=== PATIENT | male | born 1950 | race Caucasian/White ===

== ENCOUNTER 2021-05-12 13:44 | Emergency (ER) | payer MEDICARE, BC ==
[2021-05-12] MEDS ORDERED: Ketorolac 60 MG/2 ML SDV IM ONE (14:29)
--- NOTE | 2021-05-12 14:30 | EDM.PDOC ---
ED HPI GENERAL MEDICAL PROBLEM - General Chief Complaint: Lower Extremity Injury/Pain Stated Complaint: LFT FOOT PAIN SWOLLEN Time Seen by Provider: 05/12/21 14:17 Source of Information: Reports: Patient History Limitations: Reports: No Limitations - History of Present Illness INITIAL COMMENTS - FREE TEXT/NARRATIVE: HISTORY AND PHYSICAL: History of present illness: The patient is a 70-year-old male who presents to the emergency room with complaints of left lateral foot pain that started yesterday while he was hiking uphill pain in [place]. The patient states that while he was walking uphill pain he can and he heard a pop and he felt a pop. After that he was unable to the ball of his foot. He had to walk up the backwards due to the pain. The patient has a history of left foot pain which started around April 04 when he was hiking. That pain was more like a plantar fasciitis pain where he had more pain in the morning after waking up. Is been having pain on and off in his foot since then. He has taken Motrin which has helped with the pain somewhat. He prefers to hiking boot as it gives him more support. Review of systems: As per history of present illness and below otherwise all systems reviewed and negative. Past medical history: As per history of present illness and as reviewed below otherwise noncontributory. Surgical history: As per history of present illness and as reviewed below otherwise noncontributory. Social history: See social history for further information Family history: As per history of present illness and as reviewed below otherwise noncontributory. Physical exam: General: Well developed and well nourished. Alert and orientated x 3. Nontoxic in appearance and in no acute distress. Vital signs are stable and have been rev iewed by me. Nursing notes were reviewed. HEENT: Atraumatic, normocephalic, pupils equal and reactive bilaterally,trachea midline. No drooling or trismus noted. No meningeal signs. No hot potato voice noted. Lungs: Normal work of breathing, no accessory muscles used. Heart: S1S2, regular rate and rhythm without overt murmur, gallops, or rubs. No JVD. No peripheral edema Skin: Intact, warm, dry. No lesions or rashes noted. Hematologic: No petechiae or purpra. Mucosa appropriate color and normal nail bed color and refill. Extremities: Left lateral dorsum of foot with mild edema. No discoloration. No obvious deformity. Tender to touch on the lateral right side. Moves all extremities per self without difficulty or deficits, negative for cords or calf pain. Neurovascular unremarkable. Neuro: Awake, alert, oriented. Cranial nerves II through XII unremarkable. Cerebellum unremarkable. Motor and sensory unremarkable throughout. Exam nonfocal. Psychiatric: Mood and affect are appropriate. Normal thought process. Answering questions appropriately. Notes: *This patient was seen and evaluated during the 2019 SARS-CoV-2 novel coronavirus pandemic period. Community viral transmission is ongoing at time of this encounter and the emergency department is operating under pandemic response procedures. As stated above the patient is a 70-year-old male who presents to the ER after yesterday hearing a pop in his foot and having pain. He states that he previously had been possibly diagnosed with a stress fracture but it was not seen on x-ray findings. For today's purposes I will order a left foot x-ray, treat his pain with Toradol 60 mg IM. FINDINGS: Moderate lobulated chronic appearing configuration of the medial left navicular bone versus an adjacent accessory navicular bone. Small well corticated ossific density in the left lateral hindfoot chronic. Mild degenerative arthritis left foot. No acute fracture or dislocation in left foot. Left foot otherwise negative. As the patient is traveling across country and is unable to follow-up readily with a autoglazier I will put him in a walking boot to facilitate walking and comfort. Patient can take Motrin 400 to 600 mg every 6-8 hours as needed for pain. The patient is agreeable with this plan. I have talked with the patient about today's findings, in addition to providing specific details for plan of care. Reassessment at the time of disposition demonstrates that the patient is in no acute distress. The patient is stable for discharge, counseling was provided and we discussed in great detail signs and symptoms that would prompt them to return to the Emergency Department. Medication, follow up and supportive care measures were reviewed and discussed. Voices understanding and is agreeable to plan of care. Denies any further questions or concerns at this time. Diagnostics: Left foot x-ray Therapeutics: Toradol 60 mg IM. Patient to left walking boot wear for stabilization and comfort until follow-up with podiatry. Impression: Left foot pain Plan: 1. You were evaluated today on an emergent basis. Your left lateral foot pain was evaluated with an x-ray and exam. The x-ray does not show a stress f racture, however, that would not be uncommon. I am going to order a walking boot for stabilization and comfort. We will need to follow-up with a autoglazier. As you are on the road going [place] country I will leave the follow-up to you. You can use your NSAID you have at home for pain and discomfort. 2. You can alternate Tylenol and ibuprofen as needed for pain and fever management. 3. We encourage you to follow up with your primary care provider and/or recommended specialist in the next few days for re-evaluation and further care/management. 4. If your symptoms should worsen, new symptoms develop or any of the signs and symptoms we discussed should arise please return to the emergency room or call 911 (if needed). Definitive disposition and diagnosis as appropriate pending reevaluation and review of above. left foot Pain Score (Numeric/FACES): 3 - Related Data Allergies Allergy/AdvReac Type Severity Reaction Status Date / Time No Known Allergies Allergy Verified 05/12/21 14:06 Home Meds: Home Meds Esomeprazole [NexIUM] 20 mg PO DAILY 05/12/21 [History] tadalafiL [Tadalafil] 5 mg PO DAILY 05/12/21 [History] Past Medical History - Infectious Disease History Infectious Disease History: Reports: Chicken Pox, Measles, Mumps - Past Surgical History HEENT Surgical History: Reports: Naso-Sinus Surgery GI Surgical History: Reports: Hernia Repair/Other Musculoskeletal Surgical History: Reports: Knee Replacement Other Musculoskeletal Surgeries/Procedures:: cervical fusion, lumbar fusion, right knee replacement Social & Family History - Tobacco Use Tobacco Use Status *Q: Never Tobacco User - Recreational Drug Use Recreational Drug Use: No Review of Systems - Review of Systems Review Of Systems: Comprehensive ROS is negative, except as noted in HPI. ED EXAM, GENERAL - Physical Exam Exam: See Below (See dictation) Course - Vital Signs Last Recorded V/S: Last Vital Signs Temp 98 F 05/12/21 14:08 Pulse 70 05/12/21 16:04 Resp 20 05/12/21 16:04 BP 145/89 H 05/12/21 16:04 Pulse Ox 98 05/12/21 16:04 - Orders/Labs/Meds Meds: Medications Discontinued Medications Generic Name Dose Route Start Last Admin Trade Name Marisol PRN Reason Stop Dose Admin Ketorolac Tromethamine 60 mg 05/12/21 14:29 05/12/21 14:47 Ketorolac 60 Mg/2 Ml Sdv IM 05/12/21 14:30 60 mg ONETIME ONE Administration Departure - Departure Time of Disposition: 15:30 Disposition: Home, Self-Care 01 Condition: Good Clinical Impression: Foot pain, left - Discharge Information *PRESCRIPTION DRUG MONITORING PROGRAM REVIEWED*: Not Applicable *COPY OF PRESCRIPTION DRUG MONITORING REPORT IN PATIENT MICHELL: Not Applicable Instructions: Foot Pain Referrals: PCP,None [Ordering Only Provider] - Forms: ED Department Discharge Additional Instructions: The following information is given to patients seen in the emergency department who are being discharged to home. This information is to outline your options for follow-up care. We provide all patients seen in our emergency department with a follow-up referral. The need for follow-up, as well as the timing and circumstances, are variable depending upon the specifics of your emergency department visit. If you don't have a primary care physician on staff, we will provide you with a referral. We always advise you to contact your personal physician following an emergency department visit to inform them of the circumstance of the visit and for follow-up with them and/or the need for any referrals to a consulting specialist. The emergency department will also refer you to a specialist when appropriate. This referral assures that you have the opportunity for follow-up care with a specialist. All of these measure are taken in an effort to provide you with optimal care, which includes your follow-up. Under all circumstances we always encourage you to contact your private physician who remains a resource for coordinating your care. When calling for follow-up care, please make the office aware that this follow-up is from your recent emergency room visit. If for any reason you are refused follow-up, please contact the [facility] Emergency Department at and asked to speak to the emergency department charge nurse. [facility] [address] [place] [id number] [address] [id number] Plan: 1. You were evaluated today on an emergent basis. Your left lateral foot pain was evaluated with an x-ray and exam. The x-ray does not show a stress fracture, however, that would not be uncommon. I am going to order a walking boot for stabilization and comfort. We will need to follow-up with a autoglazier. As you are on the road going [place] country I will leave the follow-up to you. You can use your NSAID you have at home for pain and discomfort. 2. You can alternate Tylenol and ibuprofen as needed for pain and fever management. 3. We encourage you to follow up with your primary care provider and/or recommended specialist in the next few days for re-evaluation and further care/management. 4. If your symptoms should worsen, new symptoms develop or any of the signs and symptoms we discussed should arise please return to the emergency room or call 911 (if needed). Sepsis Event Note (ED) - Evaluation Sepsis Screening Result: No Definite Risk - Focused Exam Vital Signs: Vital Signs Temp Pulse Resp BP Pulse Ox 05/12/21 16:04 70 20 145/89 H 98 05/12/21 14:08 98 F 59 L 17 157/78 H 98
--- NOTE | 2021-05-12 15:21 | CR ---
INDICATION: Patient was hiking uphill today and heard a pop. Pain in left foot. TECHNIQUE: Three views left foot. FINDINGS: Moderate lobulated chronic appearing configuration of the medial left navicular bone versus an adjacent accessory navicular bone. Small well corticated ossific density in the left lateral hindfoot chronic. Mild degenerative arthritis left foot. No acute fracture or dislocation in left foot. Left foot otherwise negative. Dictated by Augie Mckeon MD @ 05/12/2021 3:19:[address] Augie Mckeon @ May 12 2021 3:19PM
== END 2021-05-12 16:05 | disposition home or self-care (01) ==
LOC: MW.ED 13:44
DX: M79.672 Pain in left foot (principal); X50.9XXA Other and unspecified overexertion or strenuous movements or postures, initial encounter; Y93.01 Activity, walking, marching and hiking
CPT/HCPCS: 73630; 96372; 99283; J1885